=== PATIENT | male | born 1960 | race Caucasian/White ===

== ENCOUNTER → 2017-01-06 | Day surgery (SDC) | payer OTHER ==
[2017-01-03 10:59] VITALS: BMI 28.5
[~2017-01-06] MED LIST: Diprivan 40 ML ONE; Propofol 200 MG/20 ML VIAL ONE
[2017-01-06 07:22] LABS: #Eosinphils 0.1 thou/uL (0.0-0.7); #Lymphocytes 1.7 thou/uL (1.20-3.40); #Monocytes 0.8 thou/uL (0.11-0.59); #Neutrophils 5.9 thou/uL (1.40-6.50); %Basophils 0.5 % (0.0-1.0); %Eosinophils 1.7 % (0.0-10.0); %Lymphocytes 20.1 % (21.0-51.0); %Monocytes 9.1 % (0.0-10.0); Hematocrit 44.9 % (42.0-52.0); Red Blood Cell (RBC) Count 4.78 mill/uL (4.70-6.10); White Blood Cell (WBC) Count 8.6 thou/uL (4.8-10.8)
[2017-01-06 07:29] LABS: PTT 33.7 SEC (22.9-36.1); Prothrombin Time 14.8 SEC (12.0-14.7)
[2017-01-06 07:40] LABS: Anion Gap 18 mmol/L (10-20); BUN (Urea Nitrogen) 14 mg/dL (8.4-25.7); Calc. Creatinine Clearance 131 mL/min (70-130); Calcium 9.5 mg/dL (7.8-10.44); Carbon Dioxide 22 mmol/L (22-29); Chloride 104 mmol/L (98-107); Estimated GFR-MDRD Greater than 90
--- NOTE | 2017-01-06 11:14 | DIS ---
INDICATION: He actually was not admitted, but he was seen in the outpatient facility to undergo a t ransesophageal echocardiogram to rule out evidence of a Watchman device leak. His other diagnoses i nclude: 1. Atrial fibrillation, atrial flutter, both of which been ablated. He remains in sinus rhythm. 2. Hypertension. 3. Hypercholesterolemia. 4. Aortic valve regurgitation. 5. Mitral valve regurgitation. 6. Tobacco abuse. DISCHARGE DIAGNOSES: 1. Atrial fibrillation, atrial flutter, both of which been ablated. He remains in sinus rhythm. 2. Hypertension. 3. Hypercholesterolemia. 4. Aortic valve regurgitation. 5. Mitral valve regurgitation. 6. Tobacco abuse. 7. A small purvi-device leak around the Watchman device with a centrally located area. DISCHARGE MEDICATIONS: Include Eliquis 5 mg b.i.d., aspirin 81 mg a day, lorazepam 1 mg q.6 hours p .r.n. as needed, Toprol-XL 100 mg twice a day, Prilosec 20 mg daily, Lipitor 80 mg daily, diltiazem 240 mg daily, and flecainide 100 mg b.i.d. FOLLOWUP: His followup will be with the land surveyor assistant. He already has a scheduled appointmen t in the next 1-2 weeks. He will also continue his followups with me in the office at his next sche duled appointment. PROCEDURES IN HOSPITAL: Included a transesophageal echocardiogram. HOSPITAL COURSE: This is a very pleasant 56-year-old gentleman who has undergone three ablations, t wo for atrial fibrillation and one for atrial flutter and also implantation of Watchman device into the left atrial appendage, was seen today to undergo a transesophageal echocardiogram to rule out ev idence of a purvi-device leak in order to assess whether or not he could be taken off the Eliquis or the anticoagulation and we left him on aspirin. He was taken to the recovery area where he had shor t acting propofol and the esophageal probe was easily passed into the distal esophagus. This did in dicate a very small purvi-device leak in the central area of about 0.2 mm in diameter leak across the central area. There was no evidence of a patent foramen ovale or atrial septal defect, no evidence of any other abnormalities associated with the Watchman device appears to be seated well. The left ventricular systolic function was normal, ejection fraction of 60%-65% with moderate to severe aort ic valve regurgitation and moderate mitral valve regurgitation, mild tricuspid valve regurgitation. The left atrium was measured 5.3 cm. There were no other complications or abnormalities noted or d ifficulties. There was no patent foramen ovale or atrial septal defect noted either. The patient o nce he remains stable, he will be discharged home and he will follow with the land surveyor assistant fo r a decision whether or not he will need to maintain the Eliquis or not, otherwise he remains stable from a cardiac standpoint and I will see him back in the office at a routine schedule appointment. He does have moderate to severe aortic valve regurgitation that will need to be monitored very care fully.
--- NOTE | 2017-01-06 13:15 | ECHO ---
PROCEDURE NOTE: Date: 01/06/17 PROCEDURE: Transesophageal echocardiogram. INDICATION FOR PROCEDURE: 56-year-old patient with a history of atrial fibrillation and atrial flutter ablation, and has also undergone a [place]man implantation of the left atrial appendage. He was advised by the electrophysiolo gist to undergo a transesophageal echocardiogram to rule out any evidence of peridevice leak in orde r to possibly discontinue the oral anticoagulation. DESCRIPTION OF PROCEDURE: The patient was taken to the recovery area, where he underwent short acting propofol without difficu lties or complications. The transesophageal probe was passed down the distal esophagus. IMPRESSION: 1. Small peridevice leak of approximately 0.2 cm in the central location. There were no other signi ficant abnormalities noted. It appears to be seated very well. Otherwise, there were no other compli cations noted from the device itself. 2. The left ventricular systolic function was estimated at 60-65%. 3. Moderate to severe aortic valve regurgitation. 4. Moderate mitral valve regurgitation. 5. Mild tricuspid valve regurgitation. 6. Left atrial size 5.3 cm. No evidence of left atrial thrombus. No evidence of atrial septal defec t or patent foramen ovale. The patient tolerated the procedure well without difficulties or complications.
== END ==
LOC: CCL 05:49
PROVIDERS: ATTEND Internal Medicine Cardiovascular Disease
DX: I48.1 Persistent atrial fibrillation (principal); I48.92 Unspecified atrial flutter; I10 Essential (primary) hypertension; E78.00 Pure hypercholesterolemia, unspecified; I08.0 Rheumatic disorders of both mitral and aortic valves; F17.200 Nicotine dependence, unspecified, uncomplicated; T82.538A Leakage of other cardiac and vascular devices and implants, initial encounter; Z79.01 Long term (current) use of anticoagulants; Z79.82 Long term (current) use of aspirin; Z79.899 Other long term (current) drug therapy; Z98.890 Other specified postprocedural states
CPT/HCPCS: 80048; 85025; 85610; 85730; 93312; J2704

== ENCOUNTER 2018-03-25 08:39 | Day surgery (SDC) | payer OTHER ==
[2018-03-25] MEDS ORDERED: PROPOFOL 20 ML ONE (10:30)
[2018-03-25 10:41] LABS: Hemoglobin 14.8 g/dL (14.0-18.0); Mean Corpuscular HGB CONC 33.3 g/dL (32.0-36.0); Mean Corpuscular Hemoglobin 30.3 pg (27.0-31.0); Mean Corpuscular Volume 91.1 fL (78.0-98.0); Mean Platelet Volume 8.4 fL (7.4-10.4); Platelet Count 178 thou/uL (130-400); RBC Distribution Width 12.1 % (11.5-14.5); Red Blood Cell (RBC) Count 4.88 mill/uL (4.70-6.10); White Blood Cell (WBC) Count 7.7 thou/uL (4.8-10.8)
[2018-03-25 10:59] LABS: Anion Gap 13 mmol/L (10-20); BUN (Urea Nitrogen) 13 mg/dL (8.4-25.7); Calc. Creatinine Clearance 0 mL/min (70-130); Calcium 9.4 mg/dL (7.8-10.44); Carbon Dioxide 24 mmol/L (22-29); Chloride 106 mmol/L (98-107); Estimated GFR-MDRD Greater than 90; Glucose 101 mg/dL (70-105); Potassium 4.3 mmol/L (3.5-5.1); Sodium 139 mmol/L (136-145)
[2018-03-25 11:20] LABS: Band 4 % (5-11); Eosinophils 1 % (0-10); Lymphocytes 23 % (21-51); MDiff Complete? YES; Monocytes 1 % (0-10); Neutrophil 62 % (42-75); RBC Morphology Normal; Reactive Lymphocytes 9 % (0-10)
[2018-03-25] MEDS ORDERED: PROPOFOL 200 MG/20 ML VIAL ONE (13:19)
--- NOTE | 2018-03-25 17:41 | OP ---
DATE OF PROCEDURE: 03/25/18 INDICATION FOR PROCEDURE: 58-year-old patient with atypical flutter with rapid ventricular response. He has been on anticoagula tion and was advised to undergo an electrical cardioversion back to sinus rhythm. The patient was given short acting propofol with one attempt at 100 joules he was successfully conver deepika from the atypical flutter back to a normal sinus rhythm with a heart rate in the 70s and 80s. Th ere were no complications or difficulties encountered.
--- NOTE | 2018-03-26 02:08 | DIS ---
DATE OF ADMISSION: 03/25/2018 DATE OF DISCHARGE: 03/25/2018 He was not admitted, was seen in the outpatient facility to undergo electrocardioversion on 03/25/2018. Diagnosis was atypical flutter. He was advised to undergo electrocardioversion of atrial flutter back to normal sinus rhythm. He also has a history of intermittent and persistent atrial fibrillation, status post ablation x2. He is status post Watchman device. He has a history of hyperlipidemia, hypertension. He has lphkmnax-[id number] aortic valve regurgitation. Discharge diagnosis, same. PROCEDURE: He was successfully converted from his atrial flutter back to sinus rhythm. DISCHARGE MEDICATIONS: Include: 1. Diltiazem 240 mg a day. 2. Aspirin 81 mg a day. 3. Omeprazole 20 mg a day. 4. Lorazepam p.r.n. 5. Metoprolol 50 mg a day. 6. Atorvastatin 40 mg a day. 7. Glucosamine daily. His followup will be with brazing machine tender in the next 2 to 4 weeks. He will also see me or as they have directed him. He will also see me in the office in the next 1 to 3 months. Procedure in the hospital included cardioversion at one attempt of 100 joules back to sinus rhythm. HOSPITAL COURSE: This very unfortunate 58-year-old gentleman, who has had multiple problems with atrial fibrillation in the past. He has undergone two ablations. He has had a Watchman device placed and has now recently been found to be in atrial flutter with an atypical pattern, and was advised to undergo electrical cardioversion. This was performed today without difficulties or complications after he was given short acting propofol. If he remains stable, he will be discharged home in the next couple of hours once he is awake and vital signs are stable. Job ID: [id number]
== END 2018-03-25 12:00 | disposition home or self-care (01) ==
LOC: CCL 08:39
PROVIDERS: ATTEND Internal Medicine Cardiovascular Disease
PROC: 5A2204Z Restoration of Cardiac Rhythm, Single (ICD-10-PCS; principal; 2018-03-25)
DX: I48.4 Atypical atrial flutter (principal); I48.1 Persistent atrial fibrillation; I10 Essential (primary) hypertension; I35.1 Nonrheumatic aortic (valve) insufficiency; I25.10 Atherosclerotic heart disease of native coronary artery without angina pectoris; E78.5 Hyperlipidemia, unspecified; Z79.82 Long term (current) use of aspirin; Z79.899 Other long term (current) drug therapy; Z95.818 Presence of other cardiac implants and grafts; Z98.890 Other specified postprocedural states
CPT/HCPCS: 80048; 85025; 92960; 93005; 93010; J2704

== ENCOUNTER 2018-10-02 11:31 | Day surgery (SDC) | payer OTHER ==
[2018-10-01 13:18] VITALS: BMI 29.8
[2018-10-02 12:43] LABS: #Basophils 0.1 thou/uL (0.0-0.2); #Eosinphils 0.1 thou/uL (0.0-0.7); #Lymphocytes 1.9 thou/uL (1.20-3.40); #Monocytes 0.6 thou/uL (0.11-0.59); %Basophils 0.7 % (0.0-1.0); %Eosinophils 0.8 % (0.0-10.0); %Monocytes 8.3 % (0.0-10.0); %Neutrophils 65.2 % (42.0-75.0); Hemoglobin 15.1 g/dL (14.0-18.0); Mean Corpuscular Hemoglobin 30.2 pg (27.0-31.0); Mean Corpuscular Volume 89.1 fL (78.0-98.0); Platelet Count 314 thou/uL (130-400); RBC Distribution Width 13.2 % (11.5-14.5); Red Blood Cell (RBC) Count 4.99 mill/uL (4.70-6.10); White Blood Cell (WBC) Count 7.7 thou/uL (4.8-10.8)
[2018-10-02 12:54] LABS: INR-International Normal Ratio 1.2; PTT 32.7 SEC (22.9-36.1); Prothrombin Time 14.9 SEC (12.0-14.7)
[2018-10-02 13:01] LABS: Anion Gap 12 mmol/L (10-20); BUN (Urea Nitrogen) 12 mg/dL (8.4-25.7); Calc. Creatinine Clearance 130 mL/min (70-130); Calcium 9.5 mg/dL (7.8-10.44); Carbon Dioxide 26 mmol/L (22-29); Chloride 105 mmol/L (98-107); Estimated GFR-MDRD Greater than 90; Glucose 96 mg/dL (70-105); Potassium 4.2 mmol/L (3.5-5.1); Sodium 139 mmol/L (136-145)
[2018-10-02] MEDS ORDERED: PROPOFOL 40 ML ONE (14:32)
--- NOTE | 2018-10-02 22:42 | DIS ---
DATE OF ADMISSION: 10/02/2018 DATE OF DISCHARGE: 10/02/2018 DATE OF OUTPATIENT PROCEDURE: 10/02/2018. DIAGNOSES: Include atrial flutter, history of atrial fibrillation status post ablation, status post Watchman device. He has also history of hypertension, dyslipidemia, coronary artery disease, pgzuknrx-hi-hdfmjc valve regurgitation, and now recurrence of atrial flutter. He was advised to undergo a transesophageal echocardiogram as well as a cardioversion of atrial flutter. DISCHARGE MEDICATIONS: Same as his admission medications, they include; 1. Eliquis 5 mg b.i.d. 2. Atorvastatin 40 mg, he takes two tablets a day. 3. Diltiazem 240 mg daily. 4. Multaq 400 mg b.i.d. 5. Glucosamine sulfate 1000 mg daily. 6. Lorazepam 1 mg as needed. 7. Metoprolol 50 mg daily. 8. Omeprazole 20 mg q.a.m. 9. He also takes CoQ10. FOLLOWUP: His followup will be with blood bank manager in 1-2 weeks in the office. I will see him back in the office in next 1 to 2 months. PROCEDURE IN HOSPITAL: Included electrocardioversion with atrial flutter back to normal sinus rhythm and also transesophageal echocardiogram. HOSPITAL COURSE: This is a very pleasant gentleman who has undergone multiple ablations in the past due to his atrial arrhythmias and was again found to have atrial flutter and he has undergone a Watchman device. He was placed back on his Eliquis as well as Multaq and was advised to undergo electrical cardioversion. This was performed today without difficulties or complications as noted above. With one attempt at 100 joules, he was successfully converted from his atrial flutter back to a normal sinus rhythm without complications or difficulties. Transesophageal echocardiogram also was performed without difficulties. He has a relatively normal ejection fraction of 50% to 55% with severe aortic valve regurgitation, vooq-of-nranatii mitral valve regurgitation, mild tricuspid valve regurgitation. No evidence of atrial septal defect or patent foramen ovale. There is a well-seated Watchman device in the left atrial appendage. There is no evidence of left atrial thrombus. The left atrium is moderately dilated up to approximately 4.3 cm in diameter. He tolerated all procedures well with no difficulties or complications. If he remains stable and is awake and alert, he will be discharged to home within the next 1-2 hours. Job ID: [id number]
--- NOTE | 2018-10-03 19:08 | ECHO ---
DATE OF PROCEDURE: 10/02/18 INDICATION FOR PROCEDURE: This is a 58-year-old patient who has had multiple problems with atrial arrhythmias in the past. He h as undergoing multiple ablations. He has had isolation of the left atrial appendage as well as a [facility] hman's closure device in the left atrial appendage. He was seen by the manager night on 09/30/18 and was noted to be back in atrial flutter. He was advised to undergo electrical cardioversion. He i s on Multaq and has been placed on Multaq, also Diltiazem as well as Metoprolol and was placed on Yenny naldo. The patient was taken to the recovery area where he was given short acting propofol. A transesophagea l probe was easily passed down the distal esophagus. IMPRESSION: 1. Normal left ventricular systolic function. Ejection fraction of 50-55%. 2. Severe aortic valve regurgitation with aortic valve leaflet thickening. 3. Mild to moderate mitral valve regurgitation. 4. Mild tricuspid valve regurgitation. 5. Mild left atrial dilatation. 6. Well seated Watchman device in the left atrial appendage without evidence of any peridevice l eaks. 7. No evidence of atrial septal defect or patent foramen ovale. No difficulties or complications were encountered. Once the transesophageal echocardiogram and there was no evidence of thrombus in the left atrium or left atrial appendage was closed by the Watchman de vice, then an electrical cardioversion was performed.
--- NOTE | 2018-10-03 19:08 | OP ---
DATE OF PROCEDURE: 10/02/18 INDICATIONS FOR PROCEDURE: This is a 58-year-old patient who has had multiple problems with atrial fibrillation and flutter abla tions in the past. He has now developed atrial flutter again and was advised to undergo electrical ca rdioversion. After the transesophageal echocardiogram showed no evidence of intracardiac thrombi or masses and a w ell seated Watchman device in the left atrial appendage, he successfully underwent electrical cardiov ersion using one attempt at 100 joules from atrial flutter back to a sinus rhythm with a heart rate i n the 70s. There were no complications or difficulties in encountered.
== END 2018-10-02 15:45 | disposition home or self-care (01) ==
LOC: CCL 11:31
PROVIDERS: ATTEND Internal Medicine Cardiovascular Disease
PROC: B245ZZ4 Ultrasonography of Left Heart, Transesophageal (ICD-10-PCS; principal; 2018-10-02)
PROC: 5A2204Z Restoration of Cardiac Rhythm, Single (ICD-10-PCS; principal; 2018-10-02)
DX: I48.92 Unspecified atrial flutter (principal); I08.3 Combined rheumatic disorders of mitral, aortic and tricuspid valves; I10 Essential (primary) hypertension; I25.10 Atherosclerotic heart disease of native coronary artery without angina pectoris; E78.5 Hyperlipidemia, unspecified; Z95.818 Presence of other cardiac implants and grafts; Z79.01 Long term (current) use of anticoagulants; Z79.899 Other long term (current) drug therapy
CPT/HCPCS: 80048; 85025; 85610; 85730; 92960; 93005; 93010; 93312; J2704

== ENCOUNTER → 2019-03-30 | Day surgery (SDC) | payer OTHER ==
[2019-03-29 12:36] VITALS: BMI 30.5
[~2019-03-30] MED LIST changes: +Clopidogrel Bisulfate 75 MG TAB ONE; -Diprivan 40 ML ONE; +PROPOFOL 0 ML ONE; +PROPOFOL 20 ML ONE; +PROPOFOL 200 MG/20 ML VIAL ONE; -Propofol 200 MG/20 ML VIAL ONE
[2019-03-30 08:32] LABS: #Eosinphils 0.1 thou/uL (0.0-0.7); #Lymphocytes 2.1 thou/uL (1.20-3.40); #Monocytes 0.8 thou/uL (0.11-0.59); #Neutrophils 6.3 thou/uL (1.40-6.50); %Basophils 0.5 % (0.0-1.0); %Eosinophils 1.5 % (0.0-10.0); %Lymphocytes 22.5 % (21.0-51.0); %Neutrophils 67.6 % (42.0-75.0); Hemoglobin 14.8 g/dL (14.0-18.0); Mean Corpuscular HGB CONC 33.1 g/dL (32.0-36.0); Mean Corpuscular Hemoglobin 30.4 pg (27.0-31.0); Mean Corpuscular Volume 91.9 fL (78.0-98.0); Mean Platelet Volume 6.9 fL (7.4-10.4); Platelet Count 362 thou/uL (130-400); RBC Distribution Width 12.3 % (11.5-14.5); Red Blood Cell (RBC) Count 4.88 mill/uL (4.70-6.10); White Blood Cell (WBC) Count 9.4 thou/uL (4.8-10.8)
[2019-03-30 08:55] LABS: PTT 29.9 SEC (22.9-36.1)
[2019-03-30 09:00] LABS: Anion Gap 13 mmol/L (10-20); BUN (Urea Nitrogen) 12 mg/dL (8.4-25.7); Calc. Creatinine Clearance 140 mL/min (70-130); Calcium 9.3 mg/dL (7.8-10.44); Carbon Dioxide 27 mmol/L (23-31); Chloride 104 mmol/L (98-107); Estimated GFR-MDRD Greater than 90; Glucose 100 mg/dL (80-115); Potassium 4.5 mmol/L (3.5-5.1); Sodium 139 mmol/L (136-145)
--- NOTE | 2019-03-30 15:37 | OP ---
DATE OF PROCEDURE: 03/30/2019 PROCEDURE PERFORMED: Direct current cardioversion. CLINICAL INDICATION: Atypical flutter. CLASSIFICATION: ASA classification, II. ANESTHESIA: Total IV anesthesia per Anesthesiology. ADDITIONAL CARDIAC MEDICATIONS: None. ESTIMATED BLOOD LOSS: None. ACUTE COMPLICATIONS: None. METHODS: After informed consent was obtained, the patient was taken to the preop area in a fasting state. A patch was applied across the chest in modified AP position. When the patient was fully sedated, 70 joules was delivered with a synchronized defibrillator biphasic restoring sinus rhythm. IMPRESSION: Successful direct current cardioversion. RECOMMENDATION: Discharge home when wide awake. Job ID: [id number]
== END ==
LOC: CCL 07:51
PROVIDERS: ATTEND Internal Medicine Cardiovascular Disease
PROC: 5A2204Z Restoration of Cardiac Rhythm, Single (ICD-10-PCS; principal; 2019-03-30)
DX: I48.4 Atypical atrial flutter (principal); I48.19 Other persistent atrial fibrillation; I10 Essential (primary) hypertension; E78.5 Hyperlipidemia, unspecified; I35.0 Nonrheumatic aortic (valve) stenosis; G47.33 Obstructive sleep apnea (adult) (pediatric); Z79.82 Long term (current) use of aspirin; Z79.899 Other long term (current) drug therapy; Z95.818 Presence of other cardiac implants and grafts
CPT/HCPCS: 36415; 80048; 85025; 85610; 85730; 92960; 93005; 93010; J2704

== ENCOUNTER 2020-07-25 08:57 | Outpatient (CLI) | payer OTHER ==
[2020-07-25 10:45] LABS: Hemoglobin 14.4 g/dL (13.5-17.5); Mean Corpuscular HGB CONC 32.7 g/dL (32.0-36.0); Mean Corpuscular Hemoglobin 29.4 pg (27.0-33.0); Mean Corpuscular Volume 90.2 fl (81.2-95.1); Mean Platelet Volume 9.6 fl (7.4-10.4); Platelet Count 395 10x3/uL (150-450); RBC Distribution Width 12.2 % (11.5-14.5); Red Blood Cell (RBC) Count 4.89 10x6/uL (4.32-5.72); White Blood Cell (WBC) Count 7.3 10x3/uL (3.5-10.5)
[2020-07-25 11:15] LABS: Anion Gap 16 mmol/L (10-20); BUN (Urea Nitrogen) 10 mg/dL (8.4-25.7); Calc. Creatinine Clearance 0 mL/min (70-130); Calcium 9.5 mg/dL (7.8-10.44); Carbon Dioxide 25 mmol/L (23-31); Chloride 103 mmol/L (98-107); Glucose 100 mg/dL (80-115); Potassium 4.9 mmol/L (3.5-5.1); Sodium 139 mmol/L (136-145)
[2020-07-25 11:17] LABS: INR-International Normal Ratio 0.9; PTT 27.5 sec (22.0-33.0); Prothrombin Time 10.5 sec (9.5-12.1)
[2020-07-25 17:53] LABS: SARS-CoV-2 PCR by NAA Not Detected (NotDetected)
== END 2020-07-25 08:58 | disposition home or self-care (01) ==
LOC: LABBT 08:57
PROVIDERS: ATTEND Internal Medicine Cardiovascular Disease
DX: Z01.812 Encounter for preprocedural laboratory examination (principal); Z20.822 Contact with and (suspected) exposure to COVID-19; I48.91 Unspecified atrial fibrillation
CPT/HCPCS: 80048; 85027; 85610; 85730; 87635; U0003; U0005

== ENCOUNTER → 2020-07-28 | Day surgery (SDC) | payer OTHER ==
[2020-07-26 15:22] VITALS: BMI 30.5
== END ==
LOC: CCL 10:51
PROVIDERS: ATTEND Internal Medicine Cardiovascular Disease
DX: I48.91 Unspecified atrial fibrillation (principal); Z53.8 Procedure and treatment not carried out for other reasons; Z79.82 Long term (current) use of aspirin; Z79.899 Other long term (current) drug therapy
CPT/HCPCS: 93005; 93010

== ENCOUNTER 2020-08-30 05:40 | Day surgery (SDC) | payer OTHER ==
[2020-08-28 15:25] VITALS: BMI 30.5
[2020-08-30 07:00] LABS: Hemoglobin 14.4 g/dL (14.0-18.0); Mean Corpuscular HGB CONC 34.1 g/dL (32.0-36.0); Mean Corpuscular Hemoglobin 31.4 pg (27.0-31.0); Mean Corpuscular Volume 92.2 fL (78.0-98.0); Platelet Count 337 thou/uL (130-400); RBC Distribution Width 11.8 % (11.5-14.5); Red Blood Cell (RBC) Count 4.57 mill/uL (4.70-6.10); White Blood Cell (WBC) Count 8.8 thou/uL (4.8-10.8)
[2020-08-30 07:20] LABS: Anion Gap 15 mmol/L (10-20); BUN (Urea Nitrogen) 13 mg/dL (8.4-25.7); Calc. Creatinine Clearance 133 mL/min (70-130); Calcium 8.9 mg/dL (7.8-10.44); Carbon Dioxide 24 mmol/L (23-31); Chloride 106 mmol/L (98-107); Glucose 107 mg/dL (80-115); Potassium 4.5 mmol/L (3.5-5.1); Sodium 140 mmol/L (136-145)
[2020-08-30 07:31] LABS: Prothrombin Time 12.9 sec (12.0-14.7)
[2020-08-30] MEDS ORDERED: PROPOFOL 200 MG/20 ML VIAL ONE (07:36)
[2020-08-30] MEDS ORDERED: Lidocaine 1% PF 5 ML VIAL ONE (07:36)
== END 2020-08-30 08:44 | disposition home or self-care (01) ==
LOC: CCL 05:40
PROVIDERS: ATTEND Internal Medicine Cardiovascular Disease
PROC: 5A2204Z Restoration of Cardiac Rhythm, Single (ICD-10-PCS; principal; 2020-08-30)
DX: I48.19 Other persistent atrial fibrillation (principal); I48.4 Atypical atrial flutter; G47.33 Obstructive sleep apnea (adult) (pediatric); I10 Essential (primary) hypertension; I35.1 Nonrheumatic aortic (valve) insufficiency; I25.10 Atherosclerotic heart disease of native coronary artery without angina pectoris; E78.5 Hyperlipidemia, unspecified; F17.290 Nicotine dependence, other tobacco product, uncomplicated; Z79.82 Long term (current) use of aspirin; Z79.899 Other long term (current) drug therapy
CPT/HCPCS: 80048; 85027; 85610; 85730; 92960; 93005; 93010; J2704

== ENCOUNTER 2024-01-12 10:45 | Day surgery (SDC) | payer MEDICARE ==
[2024-01-09 10:41] VITALS: BMI 31.1
[2024-01-12 12:54] LABS: #Basophils 0.03 10x3/uL (0.0-0.2); %Basophils 0.4 % (0.0-1.0); %Eosinophils 0.7 % (0.0-10.0); %Lymphocytes 22.3 % (21.0-51.0); %Monocytes 6.7 % (0.0-10.0); %Neutrophils 69.5 % (42.0-75.0); Hematocrit 42.9 % (42.0-52.0); Hemoglobin 14.4 g/dL (14.0-18.0); Mean Corpuscular HGB CONC 33.6 g/dL (32.0-36.0); Mean Corpuscular Hemoglobin 30.6 pg (27.0-31.0); Mean Corpuscular Volume 91.1 fL (78.0-98.0); Mean Platelet Volume 9.5 fL (7.4-10.4); Platelet Count 336 10x3/uL (130-400); Red Blood Cell (RBC) Count 4.71 mill/uL (4.70-6.10)
[2024-01-12 13:09] LABS: INR-International Normal Ratio 0.9; Prothrombin Time 12.3 sec (12.0-14.7)
[2024-01-12 13:10] LABS: PTT 28.1 sec (22.9-36.1)
[2024-01-12 13:19] LABS: Anion Gap 14 mmol/L (10-20); BUN (Urea Nitrogen) 15 mg/dL (8.4-25.7); Calc. Creatinine Clearance 138 mL/min (70-130); Calcium 8.9 mg/dL (7.8-10.44); Carbon Dioxide 24 mmol/L (23-31); Chloride 102 mmol/L (98-107); Estimated GFR 99; Glucose 95 mg/dL (80-115); Potassium 4.2 mmol/L (3.5-5.1); Sodium 136 mmol/L (136-145)
== END 2024-01-12 14:40 | disposition home or self-care (01) ==
LOC: SDC 10:45
PROVIDERS: ATTEND Internal Medicine Cardiovascular Disease
PROC: 5A2204Z Restoration of Cardiac Rhythm, Single (ICD-10-PCS; principal; 2024-01-12)
DX: I48.19 Other persistent atrial fibrillation (principal); G47.33 Obstructive sleep apnea (adult) (pediatric); I10 Essential (primary) hypertension; I25.10 Atherosclerotic heart disease of native coronary artery without angina pectoris; I35.1 Nonrheumatic aortic (valve) insufficiency; E78.5 Hyperlipidemia, unspecified; F41.9 Anxiety disorder, unspecified; F17.210 Nicotine dependence, cigarettes, uncomplicated; Z96.643 Presence of artificial hip joint, bilateral; Z95.818 Presence of other cardiac implants and grafts; Z98.52 Vasectomy status; Z98.890 Other specified postprocedural states; Z79.82 Long term (current) use of aspirin; Z79.899 Other long term (current) drug therapy
CPT/HCPCS: 80048; 85025; 85610; 85730; 92960; 93005; 93010